=== PATIENT | male | born 2005 | race Caucasian/White ===

== ENCOUNTER 2025-01-06 09:37 | Observation (INO) | payer BC, MEDICAID, SELFPAY ==
[2025-01-06] VITALS (25 sets, daily range): BP systolic 99–161; BP diastolic 73–107; PULSE 81–114; RESP 12–27; TEMP 36.2–36.4; O2SAT 94–99; BMI 16.9
--- NOTE | ~2025-01-06 | XR_ITS ---
EXAMINATION: XR chest 2V Exam Date/Time: 01/07/2025 17:50 CDT HISTORY: Pneumomediastinum Comparison: 01/06/2025, x-ray chest and CT chest. RESULT: Lines, tubes, and devices: None. Lungs and pleura: Clear. Cardiomediastinal silhouette: Persistent small volume subcutaneous gas over the left lower neck and along the posterior mediastinum. Other: No acute osseous or upper abdominal finding. IMPRESSION: Stable pneumomediastinum. The pulmonary opacities in the prior CT are radiographically occult. Reviewed, dictated and finalized at location K. IMPRESSION: Stable pneumomediastinum. The pulmonary opacities in the prior CT are radiograp hically occult.
--- NOTE | ~2025-01-06 | CT_ITS ---
EXAMINATION:CT diagnostic chest wo con DATE: 01/06/2025 11:45 INDICATION: Abnormal chest radiograph. Pneumothorax. TECHNIQUE: Computed tomography (CT) of the chest was performed without intravenous contrast. Automate d exposure control and iterative reconstruction technique were employed. The dose-length product (DLP ) was 144.33 mGy-cm. COMPARISON: Chest 2 views 01/06/2025 FINDINGS: There is mucous plugging in right lower lobe. There are a few small airspace and groundglas s opacities involving the right lower lobe, right middle lobe, and left upper lobe. No pleural effusi on. No pneumothorax. The heart size is normal. No pericardial effusion. Pneumomediastinum is noted. G as extends into the left neck soft tissues. The bones are unremarkable. IMPRESSION: 1. Pneumomediastinum. 2. No pneumothorax. 3. Mild multifocal lung disease, consistent with atelectasis versus atypical pneumonia. Reviewed, dictated and finalized at location A. IMPRESSION: 1. Pneumomediastinum. 2. No pneumothorax. 3. Mild multifocal lung disease, consistent with atelectasis versus atypical pn eumonia.
--- NOTE | ~2025-01-06 | XR_ITS ---
XR chest 2V Ordering provider: Mary Beth Lawson III, DO History: 19 years Male with . SOB, cp . Comparison: None. FINDINGS: MEDIASTINUM: The cardiac silhouette is not enlarged. LUNGS: No infiltrates or effusions. Lucency seen in the left apical area medially with extension in t he soft tissues which may indicate focal pneumothorax. Follow-up advised. OTHER: No free air under the diaphragm. IMPRESSION: Possible focal pneumothorax in the left apical area. Follow-up x-ray in 2 to 3 hours advised. Otherwi se no acute cardiopulmonary pathology. Reviewed, dictated and finalized at location A. IMPRESSION: Possible focal pneumothorax in the left apical area. Follow-up x-ray in 2 to 3 hours advised. Otherwise no acute cardiopulmonary pathology.
--- NOTE | ~2025-01-06 | XR_ITS ---
XR chest 2V 01/08/2025 11:09 Indication: Pneumomediastinum Procedure: 2 view chest Comparison: 01/07/2025 Findings: Heart size normal. No focal air space disease, pulmonary edema, pleural effusion or suspect ed pneumothorax. The lungs are hyperinflated which is consistent with, but not diagnostic of chronic obstructive pulmonary disease. Impression: 1: No acute cardiopulmonary disease. Reviewed, dictated and finalized at location A. Impression: 1: No acute cardiopulmonary disease.
--- NOTE | 2025-01-06 09:49 | ECG_ITS ---
Test Date: 2025-01-06 10:00:09 Measurements Intervals [place] Rate: 69 P: 87 PA: 114 QRS: 106 QRSD: 86 T: 77 QT: 368 QTc: 397 Interpretive Statements SINUS RHYTHM WITH MARKED SINUS ARRHYTHMIA WITH SHORT PA INTERVAL RIGHT AXIS DEVIATION [QRS AXIS > 100] INCOMPLETE RIGHT BUNDLE BRANCH BLOCK No previous ECG available for comparison Electronically Signed On 01-07-2025 15:29:42 CDT by Boby Villalobos M.D.
[2025-01-06 10:19] LABS: Basophils Absolute Auto 0.1 K/mm3 (0.0-0.1); Basophils Percent Auto 0.8 % (0.2-1.2); Eosinophils Absolute Auto 1.2 K/mm3 (0-0.3); Eosinophils Percent Auto 8.2 % (0-4.4); Hematocrit 53.9 % (42.0-52.0); Hemoglobin 19.2 g/dL (14.0-18.0); Immature Granulocyte Absolute 0.04 K/mm3 (0.00-0.031); Immature Granulocyte Percent A 0.3 % (0-0.5); Mean Corpuscular HGB Conc 35.6 g/dl (32-36); Mean Corpuscular Hemoglobin 30.4 pg (26-34); Mean Corpuscular Volume 85.3 fl (80-100); Mean Platelet Volume 9.6 fl (7.4-10.4); Monocytes Absolute Auto 0.9 K/mm3 (0.1-0.6); Monocytes Percent Auto 6.1 % (2.6-8.5); Neutrophils Absolute Auto 10.3 K/mm3 (1.3-6.7); Neutrophils Percent Auto 72.6 % (45.5-73.1); Platelet Count Result 346 k/mm3 (150-375); Red Blood Count 6.32 M/mm3 (4.6-6.20); Red Cell Distribution Width 12.2 % (11.5-14.5); White Blood Count 14.2 K/mm3 (4.5-10.0)
[2025-01-06 10:30] LABS: Alanine Aminotransferase 21 U/L (6-50); Alkaline Phosphatase 82 U/L (58-237); Anion Gap 15 mmol/L (4-12); Aspartate Amino Transferase 25 U/L (17-59); Bilirubin,Total 1.3 mg/dL (0.2-1.3); Blood Urea Nitrogen 17 mg/dL (8-21); Calcium 9.6 mg/dL (8.9-10.7); Carbon Dioxide 24 mmol/L (22-30); Chloride 102 mmol/L (98-107); Estimated CRCL calculation 73 ml/min; Estimated Glomerular Filt Rate > 60; Glucose 99 mg/dL (65-110); Potassium 4.1 mmol/L (3.4-5.0); Sodium 141 mmol/L (134-143)
--- NOTE | 2025-01-06 11:30 | ED.SOB ---
HPI - SOB/Dyspnea General Chief Complaint: Shortness of Breath/Dyspnea Stated Complaint: trouble breathing 2 weeks Time Seen by Provider: 01/06/25 11:24 History of Present Illness HPI Narrative: Pt says he has felt SOB for two weeks especially when laying flat. Pt would cough up some mucous and it would improve. Pt says he started developing some sharp CP and a little worse SOB last couple of days so came to ER. Related Data Home Medications ?Medication ?Instructions ?Recorded ?Confirmed ?Last Taken ?Type No Home Medications 01/06/25 01/06/25 Unknown History Allergies Allergy/AdvReac Type Severity Reaction Status Date / Time No Known Allergies Allergy Verified 01/06/25 09:39 Review of Systems Review of Systems: All systems reviewed & are unremarkable except as noted in HPI and below PMFSH Social History Social History Smoking packs per day: 0.25 Smoking cigarettes per day: 5.0 Years smoked: 2 Smoking pack-years: 0.50 Smoking status: Current every day smoker Tobacco type: cigarettes Second hand tobacco smoke exposure: No Alcohol intake: never Substance use: former Substance use type: marijuana Do You Feel Safe in your Home?: Yes Lack of Transportation: No Lack of Food: Never True Current Housing: I Have Housing Concerned About Future Housing: No Difficulty Paying Gas/Electric Bills: No Difficulty Paying for Meds: No Currently Unemployed: No Education: High School Diploma/GED Difficulty w/ Childcare or Family Care: No Spiritual care concerns: No Exam Const: General: healthy appearing and no acute distress Nutritional Appearance: well nourished and thin Orientation/consciousness: patient oriented x3 Limitations: no limitations Chest: Chest palpation & inspection: normal inspection of the chest Resp: Effort & Inspection: normal respiratory effort Auscultation: clear to auscultation bilaterally Cardio: Rate: regular rate Rhythm: regular rhythm GI: GI Palp: Yes Soft to palpation Auscultation: normal bowel sounds Skin: General skin exam: normal color Rashes: no rashes Wounds: no wounds Neuro: General: patient oriented x3, moves all extremities, no focal motor deficits and CN's II-XI intact bilaterally Cranial nerves: Yes Nystagmus not present Speech: normal speech Extrem: General: normal to inspection and no clubbing, cyanosis or edema Psych: Mental Status: mental status grossly normal Affect: normal affect Attitude: cooperative Course Vital Signs Vital signs: Vital Signs Temperature 97.5 F L 03/24/25 09:40 Pulse Rate 114 H 01/06/25 09:40 Respiratory Rate 20 01/06/25 09:40 Blood Pressure 149/107 H 01/06/25 09:40 Pulse Oximetry 96 01/06/25 09:40 Oxygen Delivery Room Air 01/06/25 09:40 Temperature 97.5 F L 01/06/25 09:40 Pulse Rate 93 01/06/25 15:05 Respiratory Rate 21 H 01/06/25 15:05 Blood Pressure 128/84 01/06/25 15:05 Pulse Oximetry 95 01/06/25 15:05 Oxygen Delivery Room Air 01/06/25 09:40 MDM - SOB/Dyspnea MDM Narrative Medical decision making narrative: Pt presents with SOB and CP. EKG unremarkable will get labs and cxr. cxr show smal left apical pneumothorax. Will get CT chest. ct chest shows no pneumothorax but has pneumomediastinum. Discussed with Dr Velazquez said get d dimer and make sure not PE d dimer neg discussed with Dr Nielson, CT surgeon at [facility] aske if possibilty or Borhaev's suyndrome. Pt has not been vomiting and has no abdominal pain. pt has no PCP so cannot arrange outpatient follow up. discussed with Dimple Zhou and agrees to observe overnight. Lab Data 01/06/25 10:04 01/06/25 10:04 Labs: Lab Results 01/06/25 01/06/25 Range/Units 10:04 12:57 WBC 14.2 H (4.5-10.0) K/mm3 RBC 6.32 H (4.6-6.20) M/mm3 Hgb 19.2 H (14.0-18.0) g/dL Hct 53.9 H (42.0-52.0) % MCV 85.3 (80-100) fl MCH 30.4 (26-34) pg MCHC 35.6 (32-36) g/dl RDW 12.2 (11.5-14.5) % Plt Count 346 (150-375) k/mm3 MPV 9.6 (7.4-10.4) fl Immature Gran % (Auto) 0.3 (0-0.5) % Neut % (Auto) 72.6 (45.5-73.1) % Lymph % (Auto) 12.0 L (18.3-44.2) % [place] % (Auto) 6.1 (2.6-8.5) % Eos % (Auto) 8.2 H (0-4.4) % Baso % (Auto) 0.8 (0.2-1.2) % Lymph # (Auto) 1.70 (0.9-3.2) K/mm3 [place] # (Auto) 0.9 H (0.1-0.6) K/mm3 Eos # (Auto) 1.2 H (0-0.3) K/mm3 Baso # (Auto) 0.1 (0.0-0.1) K/mm3 Abs Immat Gran (auto) 0.04 H (0.00-0.031) K/mm3 Absolute Neuts (auto) 10.3 H (1.3-6.7) K/mm3 Absolute Nucleated RBC 0.000 (0.0-0.012) K/mm3 Nucleated RBC % 0.0 (0.0-0.2) % D-Dimer < 0.27 (<0.48) ug/mL Sodium 141 (134-143) mmol/L Potassium 4.1 (3.4-5.0) mmol/L Chloride 102 (98-107) mmol/L Carbon Dioxide 24 (22-30) mmol/L Anion Gap 15 H (4-12) mmol/L BUN 17 (8-21) mg/dL Creatinine 1.06 (0.7-1.3) mg/dL Estim Creat Clear Calc 73 ml/min Estimated GFR > 60 (59 - ) Glucose 99 (65-110) mg/dL Calcium 9.6 (8.9-10.7) mg/dL Total Bilirubin 1.3 (0.2-1.3) mg/dL AST 25 (17-59) U/L ALT 21 (6-50) U/L Alkaline Phosphatase 82 (58-237) U/L Total Protein 9.0 H (6.3-8.6) g/dL Albumin 5.0 (3.7-5.6) g/dL Discharge Plan Discharge Clinical Impression: Pneumomediastinum Patient Disposition: Still a Patient Condition: Stable
[2025-01-06 13:23] LABS: D Dimer < 0.27 ug/mL (<0.48)
--- NOTE | 2025-01-06 15:07 | P.HP_ITS ---
H&P: HPI History of Present Illness Date/Time: 01/06/25 15:07 Chief Complaint: Shortness of breath and chest pain Narrative: 19-year-old male presents to the emergency room with shortness of breath and chest pain. Patient states that he had shortness of breath starting a few days ago. He thought that he was getting cold or flu so he took some [id number] cough medicine. He states that he had difficulty sleeping at night he felt like he can not breathe. It was not improving so he came into the hospital. Denies heart coughing, fever chills nausea or vomiting. Does endorse vaping. In the ED is leukocytosis at 14.2 hemoglobin of 19.2, chest x-ray shows possible pneumothorax in the left apical area, chest CT shows pneumomediastinum, no pneumothorax, mild multifocal lung disease consistent with atelectasis versus atypical pneumonia. Chest EKG shows sinus rhythm with marked sinus arrhythmia with short [place] interval possible right ventricle conduction delay. Pulmonology consulted. Review of Systems Review of Systems: 12 systems were reviewed and are negativ e except for as per HPI. [facility] Social History Social History Smoking packs per day: 0.25 Smoking cigarettes per day: 5.0 Years smoked: 2 Smoking pack-years: 0.50 Smoking status: Current every day smoker Tobacco type: cigarettes Second hand tobacco smoke exposure: No Alcohol intake: never Substance use: former Substance use type: marijuana Do You Feel Safe in your Home?: Yes Lack of Transportation: No Lack of Food: Never True Current Housing: I Have Housing Concerned About Future Housing: No Difficulty Paying Gas/Electric Bills: No Difficulty Paying for Meds: No Currently Unemployed: No Education: High School Diploma/GED Difficulty w/ Childcare or Family Care: No Spiritual care concerns: No Meds Home Medications and Allergies Home Medications ?Medication ?Instructions ?Recorded ?Confirmed ?Type No Home Medications 01/06/25 01/06/25 History Allergies Allergy/AdvReac Type Severity Reaction Status Date / Time No Known Allergies Allergy Verified 01/06/25 09:39 Vital Signs Vital Signs - 24 hr 01/06/25 09:40 01/06/25 09:57 01/06/25 10:01 Temperature 97.5 F L Pulse Rate 114 H 110 H 104 H Respiratory Rate 20 27 H 14 Blood Pressure 149/107 H Pulse Oximetry 96 96 95 Oxygen Delivery Room Air 01/06/25 10:04 01/06/25 10:09 01/06/25 10:10 Temperature Pulse Rate 85 97 88 Respiratory Rate 18 20 Blood Pressure 136/99 H 132/99 H Pulse Oximetry 98 97 Oxygen Delivery 01/06/25 10:15 01/06/25 10:16 01/06/25 10:34 Temperature Pulse Rate 87 94 86 Respiratory Rate 18 23 H 22 H Blood Pressure 121/98 H Pulse Oximetry 97 97 96 Oxygen Delivery 01/06/25 10:35 01/06/25 10:45 01/06/25 10:47 Temperature Pulse Rate 91 89 94 Respiratory Rate 21 H 22 H 24 H Blood Pressure 99/73 L Pulse Oximetry 95 94 96 Oxygen Delivery 01/06/25 11:00 01/06/25 14:45 Temperature Pulse Rate 94 93 Respiratory Rate 21 H 22 H Blood Pressure 125/94 H Pulse Oximetry 96 96 Oxygen Delivery Exam Narrative: General: well appearing, appears stated age. HEENT: normocephalic, atraumatic. Mucous membranes moist. EOMI, PERRLA, bilateral sclera anicteric, no conjunctival injection. Neck supple without JVD, lymphadenopathy, or bruit. Respiratory: Wheezing to ascultation bilaterally. No rales/rhonic/wheezes. Cardiovascular: Regular rate and rhythm, normal S1-S2 upon ascultation. No murmurs, rubs, or clicks. PMI is nondisplaced, capillary refill less than 3 second. Abdomen: Soft, round, no pulsatile masses, nondistended and nontender. No rebound, no guarding. No CVA tenderness, no hepatosplenomegaly. Bowel sounds present to all four quadrants. No high pitch or tinkling sounds, resonant to percussion. Extremities: No cyanosis, clubbing, or edema present. Pulses are palpable 2/2. Active ROM to all four extremities. Neuro: Alert and orientated x 4. PERRLA. Cranial nerves 2-12 intact without focal deficit. Skin: Warm, dry, and intact, without rash, erythema, or lesion. Psych: pleasant, cooperative, normal speech, normal affect, no hallucinations, no dysarthia H&P: Results Labs Labs: Short CBC 01/06/25 Range/Units 10:04 WBC 14.2 H (4.5-10.0) K/mm3 Hgb 19.2 H (14.0-18.0) g/dL Hct 53.9 H (42.0-52.0) % Plt Count 346 (150-375) k/mm3 BMP 01/06/25 10:04 Sodium 141 Potassium 4.1 Chloride 102 Carbon Dioxide 24 BUN 17 Creatinine 1.06 Glucose 99 Calcium 9.6 Liver Function 01/06/25 Range/Units 10:04 Total Bilirubin 1.3 (0.2-1.3) mg/dL AST 25 (17-59) U/L ALT 21 (6-50) U/L Alkaline Phosphatase 82 (58-237) U/L Albumin 5.0 (3.7-5.6) g/dL Assessment and Plan Assessment and plan (1) Pneumomediastinum: Code(s): J98.2 - Interstitial emphysema Status: Acute Assessment and Plan: Pulmonology consult Plan for repeat CT in the a.m. Repeat EKG in the morning Patient counseled about not vaping Albuterol inhaler (2) Leukocytosis: Code(s): D72.829 - Elevated white blood cell count, unspecified Status: Acute Assessment and Plan: Repeat CBC the morning CT with pneumonia versus atelectasis, will hold off on antibiotics for now Repeat CT in the morning Quality VTE Prophylaxis VTE prophylaxis: mechanical ordered Hospitalist MIPS Advance Care Plan I have confirmed that the patient's Advanced Care Plan is present, code status is documented, or surrogate decision maker is listed in patient medical record.: Yes Medication Reconciliation I have utilized all available resources to obtain, update and review the patients current medications (includes all prescriptions, OTC, herbals, cannabis, and nutritional supplements).: Yes
--- NOTE | 2025-01-06 17:48 | ADMGEN ---
This patient, Apolinar Chan, was admitted to [facility] Surg Room 321-02. Patient/family oriented to hospital policies and general routines including ID bracelet, bed and alarms, visiting hours, pain management, procedures, bathroom and other care routines, personal items, smoking policy, room service/diet, and visiting hours. Information on how to activate the Rapid Response Team has been discussed. Patient/Family are encouraged to report perceived risks to care and to ask questions if they do not understand what they are told or what they should do.
[2025-01-07] VITALS: BP 134/97; PULSE 70; RESP 13; TEMP 36.1; O2SAT 94
[2025-01-07 04:00] VITALS: BP 145/85; PULSE 75; RESP 12; TEMP 36.6; O2SAT 95
[2025-01-07 06:00] VITALS: BP 145/85; PULSE 75; RESP 12; TEMP 36.6; O2SAT 95
[2025-01-07 06:17] LABS: Basophils Absolute Auto 0.1 K/mm3 (0.0-0.1); Eosinophils Absolute Auto 1.3 K/mm3 (0-0.3); Eosinophils Percent Auto 12.4 % (0-4.4); Hematocrit 53.5 % (42.0-52.0); Immature Granulocyte Absolute 0.02 K/mm3 (0.00-0.031); Immature Granulocyte Percent A 0.2 % (0-0.5); Lymphocytes Absolute Auto 2.81 K/mm3 (0.9-3.2); Mean Corpuscular HGB Conc 35.5 g/dl (32-36); Mean Corpuscular Hemoglobin 30.2 pg (26-34); Mean Corpuscular Volume 84.9 fl (80-100); Mean Platelet Volume 9.4 fl (7.4-10.4); Monocytes Absolute Auto 0.9 K/mm3 (0.1-0.6); Monocytes Percent Auto 8.3 % (2.6-8.5); Neutrophils Absolute Auto 5.3 K/mm3 (1.3-6.7); Neutrophils Percent Auto 51.1 % (45.5-73.1); Platelet Count Result 353 k/mm3 (150-375); White Blood Count 10.4 K/mm3 (4.5-10.0)
[2025-01-07 06:24] LABS: Anion Gap 14 mmol/L (4-12); Blood Urea Nitrogen 17 mg/dL (8-21); Calcium 9.6 mg/dL (8.9-10.7); Carbon Dioxide 23 mmol/L (22-30); Chloride 101 mmol/L (98-107); Estimated CRCL calculation 83 ml/min; Estimated Glomerular Filt Rate > 60; Glucose 85 mg/dL (65-110); Potassium 4.5 mmol/L (3.4-5.0); Sodium 138 mmol/L (134-143)
--- NOTE | 2025-01-07 07:00 | ECG_ITS ---
Test Date: 2025-01-07 09:30:18 Measurements Intervals [place] Rate: 80 P: 85 NV: 129 QRS: 107 QRSD: 89 T: 59 QT: 349 QTc: 404 Interpretive Statements SINUS RHYTHM WITH MARKED SINUS ARRHYTHMIA RIGHT AXIS DEVIATION [QRS AXIS > 100] INCOMPLETE RIGHT BUNDLE BRANCH BLOCK Compared to ECG 01/06/2025 10:00:09 NO SIGNIFICANT CHANGES Electronically Signed On 01-07-2025 16:42:07 CDT by Boby Villalobos M.D.
--- NOTE | 2025-01-07 10:21 | P.PNIM_ITS ---
Progress Note: A&P Assessment and Plan (1) Atypical pneumonia: Code(s): J18.9 - Pneumonia, unspecified organism Status: Acute (2) Pneumomediastinum: Code(s): J98.2 - Interstitial emphysema Status: Acute (3) Leukocytosis: Code(s): D72.829 - Elevated white blood cell count, unspecified Status: Acute Plan 19-year-old male presents to the emergency room with shortness of breath and chest pain. Patient states that he had shortness of breath starting a few days ago. He thought that he was getting cold or flu so he took some [id number] cough medicine. He states that he had difficulty sleeping at night he felt like he can not breathe. It was not improving so he came into the hospital. Denies heart coughing, fever chills nausea or vomiting. Does endorse vaping. Pneumomediastinum: Code(s): J98.2 - Interstitial emphysema Status: Acute Assessment and Plan: CT chest reported 1. Pneumomediastinum. 2. No pneumothorax. 3. Mild multifocal lung disease, consistent with atelectasis versus atypical pneumonia. Patient counseled about not vaping Continue Albuterol inhaler p.r.n. Pulmonology consult for evaluation treatment Leukocytosis: Code(s): D72.829 - Elevated white blood cell count, unspecified Status: Acute Assessment and Plan: Repeat CBC the morning, leukocytosis trending down CT showed Mild multifocal lung disease, consistent with atelectasis versus atypical pneumonia. Languages And Literature Instructor consulted, follow recommendations Subjective Date/time seen: 01/07/25 10:21 Interval history: I saw examined patient today, patient feels chest pain is improving, denies shortness breath, abdomen pain nausea vomiting diarrhea. Patient is afebrile, blood pressure stable no O2 desaturation room air, labs reviewed, leukocytosis improving, Exam Narrative: GENERAL: Pleasant, in no acute distress. Well-nourished. - EYES: EOMI. Anicteric. - HENT: Moist mucous membranes. - LUNGS: Clear to auscultation bilateral ly, no wheezing, rhonchi, or rales. - CARDIOVASCULAR: Regular rate and rhyth m. No murmur. No JVD. - ABDOMEN: Soft, non-tender and non-dist ended. No palpable masses. - EXTREMITIES: No edema. Peripheral puls es 2+. Non-tender. - NEUROLOGIC: No focal neurological defi cits. CN II-XII grossly intact. - PSYCHIATRIC: Awake, Alert and oriented x 3. Appropriate mood and affect. - SKIN: No rashes or lesions. Warm. - LYMPH: No cervical lymphadenopathy. Objective Data Vital Signs Vital Signs: Vital Signs - 24 hr 01/06/25 10:34 01/06/25 10:35 01/06/25 10:45 Temperature Pulse Rate 86 91 89 Respiratory Rate 22 H 21 H 22 H Blood Pressure Pulse Oximetry 96 95 94 Oxygen Delivery 01/06/25 10:47 01/06/25 11:00 01/06/25 12:31 Temperature Pulse Rate 94 94 93 Respiratory Rate 24 H 21 H 22 H Blood Pressure 99/73 L Pulse Oximetry 96 96 99 Oxygen Delivery 01/06/25 12:47 01/06/25 13:01 01/06/25 13:15 Temperature Pulse Rate 91 94 81 Respiratory Rate 23 H 24 H 22 H Blood Pressure Pulse Oximetry 98 99 98 Oxygen Delivery 01/06/25 13:30 01/06/25 13:45 01/06/25 14:00 Temperature Pulse Rate 87 95 92 Respiratory Rate 25 H 26 H 24 H Blood Pressure Pulse Oximetry 95 96 97 Oxygen Delivery 01/06/25 14:18 01/06/25 14:30 01/06/25 14:45 Temperature Pulse Rate 97 90 93 Respiratory Rate 25 H 20 22 H Blood Pressure 125/94 H Pulse Oximetry 95 97 96 Oxygen Delivery 01/06/25 15:05 01/06/25 20:00 01/06/25 20:00 Temperature 97.1 F L Pulse Rate 93 87 Respiratory Rate 21 H 12 Blood Pressure 128/84 161/85 H Pulse Oximetry 95 97 Oxygen Delivery Room Air 01/07/25 00:00 01/07/25 04:00 01/07/25 06:00 Temperature 96.9 F L 97.8 F 97.8 F Pulse Rate 70 75 75 Respiratory Rate 13 12 12 Blood Pressure 134/97 H 145/85 H 145/85 H Pulse Oximetry 94 95 95 Oxygen Delivery 01/07/25 08:00 Temperature Pulse Rate Respiratory Rate Blood Pressure Pulse Oximetry Oxygen Delivery Room Air Intake/Output Intake/Output: Intake & Output 01/04/25 01/05/25 01/06/25 01/07/25 23:59 23:59 23:59 23:59 Intake Total 740 940 Balance 740 940 Meds/Results Medications: Active Medications Generic Name Dose Route Start Last Admin Trade Name Arturo PRN Reason Stop Dose Admin Acetaminophen 650 mg 01/06/25 15:16 Acetaminophen 325 Mg Tablet PO Q4H PRN Mild Pain (1-3) or Fever Albuterol 2 puff 01/06/25 22:39 Albuterol Sulfate (*Sp) Aerosol 1 Puff INHALATION Q6HRT PRN Shortness Of Breath Radiology Results: ITS Impressions Chest X-Ray 01/06/25 10:42 IMPRESSION: Possible focal pneumothorax in the left apical area. Follow-up x-ray in 2 to 3 hours advised. Otherwise no acute cardiopulmonary pathology. Chest CT 01/06/25 11:52 IMPRESSION: 1. Pneumomediastinum. 2. No pneumothorax. 3. Mild multifocal lung disease, consistent with atelectasis versus atypical pneumonia. Labs Labs: Laboratory Results - last 24 hr 01/06/25 01/06/25 01/07/25 10:04 12:57 05:56 WBC 14.2 H 10.4 H RBC 6.32 H 6.30 H Hgb 19.2 H 19.0 H Hct 53.9 H 53.5 H MCV 85.3 84.9 MCH 30.4 30.2 MCHC 35.6 35.5 RDW 12.2 12.0 Plt Count 346 353 MPV 9.6 9.4 Immature Gran % (Auto) 0.3 0.2 Neut % (Auto) 72.6 51.1 Lymph % (Auto) 12.0 L 27.0 [place] % (Auto) 6.1 8.3 Eos % (Auto) 8.2 H 12.4 H Baso % (Auto) 0.8 1.0 Lymph # (Auto) 1.70 2.81 [place] # (Auto) 0.9 H 0.9 H Eos # (Auto) 1.2 H 1.3 H Baso # (Auto) 0.1 0.1 Abs Immat Gran (auto) 0.04 H 0.02 Absolute Neuts (auto) 10.3 H 5.3 Absolute Nucleated RBC 0.000 0.000 Nucleated RBC % 0.0 0.0 D-Dimer < 0.27 Sodium 141 138 Potassium 4.1 4.5 Chloride 102 101 Carbon Dioxide 24 23 Anion Gap 15 H 14 H BUN 17 17 Creatinine 1.06 0.93 Estim Creat Clear Calc 73 83 Estimated GFR > 60 > 60 Glucose 99 85 Calcium 9.6 9.6 Total Bilirubin 1.3 AST 25 ALT 21 Alkaline Phosphatase 82 Total Protein 9.0 H Albumin 5.0
[2025-01-07 14:00] VITALS: BP 164/96; PULSE 68; RESP 20; TEMP 36.9; O2SAT 96
[2025-01-07] MEDS: ALBUTEROL SULFATE (*SP) AEROSOL 1 PUFF 2 PUFF INHALATION (21:11)
[2025-01-07] MEDS: guaiFENesin 12 HR 600 MG TABCR PO (21:19)
[2025-01-07 21:22] VITALS: PULSE 80; RESP 18; O2SAT 97
[2025-01-07 22:00] VITALS: BP 151/98; PULSE 62; RESP 16; TEMP 36.8; O2SAT 96
[2025-01-08 05:52] VITALS: BP 131/94; PULSE 90; RESP 16; TEMP 36.4; O2SAT 94
--- NOTE | 2025-01-08 07:28 | PM.IMPN ---
Progress Note: A&P Assessment and Plan (1) Atypical pneumonia: Code(s): J18.9 - Pneumonia, unspecified organism Status: Acute (2) Pneumomediastinum: Code(s): J98.2 - Interstitial emphysema Status: Acute (3) Leukocytosis: Code(s): D72.829 - Elevated white blood cell count, unspecified Status: Acute Plan 19-year-old male presents to the emergency room with shortness of breath and chest pain. Patient states that he had shortness of breath starting a few days ago. He thought that he was getting cold or flu so he took some yrcr-hug-fgelelk cough medicine. He states that he had difficulty sleeping at night he felt like he can not breathe. It was not improving so he came into the hospital. Denies heart coughing, fever chills nausea or vomiting. Does endorse vaping. Pneumomediastinum: Code(s): J98.2 - Interstitial emphysema Status: Acute Assessment and Plan: CT chest reported 1. Pneumomediastinum. 2. No pneumothorax. 3. Mild multifocal lung disease, consistent with atelectasis versus atypical pneumonia. Patient counseled about not vaping Continue Albuterol inhaler p.r.n. Pulmonology consult for evaluation treatment Leukocytosis: Code(s): D72.829 - Elevated white blood cell count, unspecified Status: Acute Assessment and Plan: Repeat CBC the morning, leukocytosis trending down CT showed Mild multifocal lung disease, consistent with atelectasis versus atypical pneumonia. Assistant [employer] consulted, follow recommendations Time Spent With Patient Time: Subjective Date/time seen: 01/08/25 07:28 Interval history: 19-year-old male presents to the emergency room with shortness of breath and chest pain. Patient states that he had shortness of breath starting a few days ago. 01/08/25 Review of Systems Review of Systems: 12 systems were reviewed and are negative except for as per HPI. Exam Narrative: GENERAL: Pleasant, in no acute distress. Well-nourished. - EYES: EOMI. Anicteric. - HENT: Moist mucous membranes. - LUNGS: Clear to auscultation bilaterally, no wheezing, rhonchi, or rales. - CARDIOVASCULAR: Regular rate and rhythm. No murmur. No JVD. - ABDOMEN: Soft, non-tender and non-distended. No palpable masses. - EXTREMITIES: No edema. Peripheral pulses 2+. Non-tender. - NEUROLOGIC: No focal neurological deficits. CN II-XII grossly intact. - PSYCHIATRIC: Awake, Alert and oriented x 3. Appropriate mood and affect. - SKIN: No rashes or lesions. Warm. - LYMPH: No cervical lymphadenopathy. Objective Data Vital Signs Vital Signs: Vital Signs - 24 hr 01/07/25 08:00 01/07/25 14:00 01/07/25 20:00 Temperature 98.4 F Pulse Rate 68 Respiratory Rate 20 Blood Pressure 164/96 H Pulse Oximetry 96 Oxygen Delivery Room Air Room Air 01/07/25 21:22 01/07/25 22:00 01/08/25 05:52 Temperature 98.2 F 97.5 F L Pulse Rate 80 62 90 Respiratory Rate 18 16 16 Blood Pressure 151/98 H 131/94 H Pulse Oximetry 97 96 94 Oxygen Delivery Room Air Intake/Output Intake/Output: Intake & Output 01/05/25 01/06/25 01/07/25 01/08/25 23:59 23:59 23:59 23:59 Intake Total 740 2420 200 Balance 740 2420 200 Meds/Results Medications: Active Medications Generic Name Dose Route Start Last Admin Trade Name Freq PRN Reason Stop Dose Admin Acetaminophen 650 mg 01/06/25 15:16 Acetaminophen 325 Mg Tablet PO Q4H PRN Mild Pain (1-3) or Fever Albuterol 2 puff 01/06/25 22:39 01/07/25 21:11 Albuterol Sulfate (*Sp) Aerosol 1 Puff INHALATION 2 puff Q6HRT PRN Administration Shortness Of Breath Guaifenesin 600 mg 01/07/25 21:05 01/07/25 21:19 Guaifenesin 12 Hr 600 Mg Tabcr PO 600 mg Q12HR ANJU Administration Radiology Results: ITS Impressions Chest CT 01/06/25 11:52 IMPRESSION: 1. Pneumomediastinum. 2. No pneumothorax. 3. Mild multifocal lung disease, consistent with atelectasis versus atypical pneumonia. Chest X-Ray 01/07/25 17:59 IMPRESSION: Stable pneumomediastinum. The pulmonary opacities in the prior CT are radiographically occult. Quality VTE Prophylaxis VTE prophylaxis: mechanical ordered
[2025-01-08 08:00] VITALS: O2SAT 93
[2025-01-08 08:23] LABS: Basophils Absolute Auto 0.1 K/mm3 (0.0-0.1); Basophils Percent Auto 1.2 % (0.2-1.2); Hematocrit 53.6 % (42.0-52.0); Hemoglobin 19.4 g/dL (14.0-18.0); Immature Granulocyte Absolute 0.02 K/mm3 (0.00-0.031); Immature Granulocyte Percent A 0.3 % (0-0.5); Lymphocytes Absolute Auto 1.95 K/mm3 (0.9-3.2); Lymphocytes Percent Auto 25.6 % (18.3-44.2); Mean Corpuscular HGB Conc 36.2 g/dl (32-36); Mean Corpuscular Hemoglobin 31.1 pg (26-34); Mean Corpuscular Volume 85.9 fl (80-100); Mean Platelet Volume 9.5 fl (7.4-10.4); Monocytes Absolute Auto 0.7 K/mm3 (0.1-0.6); Monocytes Percent Auto 9.7 % (2.6-8.5); Neutrophils Absolute Auto 3.8 K/mm3 (1.3-6.7); Neutrophils Percent Auto 50.2 % (45.5-73.1); Platelet Count Result 328 k/mm3 (150-375); Red Blood Count 6.24 M/mm3 (4.6-6.20); Red Cell Distribution Width 12.2 % (11.5-14.5); White Blood Count 7.6 K/mm3 (4.5-10.0)
[2025-01-08 08:33] LABS: Alanine Aminotransferase 20 U/L (6-50); Albumin Level 4.8 g/dL (3.7-5.6); Alkaline Phosphatase 72 U/L (58-237); Anion Gap 13 mmol/L (4-12); Aspartate Amino Transferase 25 U/L (17-59); Bilirubin,Total 1.2 mg/dL (0.2-1.3); Blood Urea Nitrogen 16 mg/dL (8-21); Calcium 9.6 mg/dL (8.9-10.7); Carbon Dioxide 25 mmol/L (22-30); Chloride 100 mmol/L (98-107); Estimated CRCL calculation 79 ml/min; Estimated Glomerular Filt Rate > 60; Glucose 92 mg/dL (65-110); Potassium 4.1 mmol/L (3.4-5.0); Sodium 138 mmol/L (134-143)
--- NOTE | 2025-01-08 08:46 | P.CONPL_ITS ---
Assessment and Plan Assessment and plan (1) Pneumomediastinum: Code(s): J98.2 - Interstitial emphysema Status: Acute Assessment and Plan: This 19-year-old man developed symptoms consistent with an upper respiratory infection and subsequently experienced shortness of breath and wheezing. He was diagnosed with a pneumomediastinum and a few rare ground-glass opacities on chest CT. There is no pneumothorax, and on physical examination today, he continues to have wheezing. His clinical condition has improved over the last 24 hours. It is likely that this young man developed an upper respiratory infection with wheezing and coughing, which increased intrathoracic pressure, leading to air leakage. The pneumomediastinum is mild, and on physical examination, there is no evidence of crepitus in the upper chest or neck area. The elevated eosinophil count and wheezing raise concerns for possible obstructive airway disease, such as asthma. Other findings on physical examination include long, slender fingers and possibly a high-arched palate, but the patient does not exhibit the characteristic features of typical marfanoid syndrome, which can be associated with spontaneous pneumothorax. Plan: We will initiate treatment with a nebulized short-acting bronchodilator and administer Solu-Medrol 60 mg today for the wheezing. A repeat chest X-ray will be conducted in the morning, and the patient will most likely be discharged home following this repeat X-ray. I will continue to monitor the patient along with you. In cases of mild pneumomediastinum without pneumothorax, especially in a young patient following an upper respiratory infection, the treatment is typically conservative. Most mild cases resolve on their own without the need for invasive intervention. The patient should be closely monitored for any signs of complications or worsening symptoms. (2) Atypical pneumonia: Code(s): J18.9 - Pneumonia, unspecified organism Status: Acute (3) Leukocytosis: Code(s): D72.829 - Elevated white blood cell count, unspecified Status: Acute (4) Wheezing: Code(s): R06.2 - Wheezing Status: Acute (5) Eosinophilia: Code(s): D72.10 - Eosinophilia, unspecified Status: Acute History of Present Illness History of Present Illness Consult date: 01/08/25 Chief complaint: pneumomediastinum Narrative: This is a consultation for pneumomediastinum. This 19-year-old man was in his usual state of health until approximately three days prior to his presentation to the emergency room with shortness of breath. He reported that he began experiencing chest congestion and producing yellow-greenish sputum, for which he started taking [id number] medications, suspecting a flu-like illness. On the day of presentation, he experienced some shortness of breath and a pressure- like feeling in his upper chest. He also noted waking up at night with shortness of breath and reported wheezing. In the emergency room, he underwent a chest CT that showed mild pneumomediastinum and a few ground-glass opacities, but no pneumothorax or pleural effusions. His D-dimer levels were not elevated; however, his eosinophil count was elevated to approximately 900 and remained elevated on two subsequent CBC tests. The patient has been on Mucinex and uses albuterol as needed. Currently, he is doing better and reports no shortness of breath, fever, chills, hemoptysis, or wheezing. He denies having chest pain or palpitations. His past medical history is essentially unremarkable for underlying lung disease. He used to smoke approximately 4-5 cigarettes a day but quit three months ago. He also smoked marijuana and vaped in high school, but currently, he is not using any marijuana nor does he vape. He has no history of asthma, and there is no family history of asthma. He has no history of exposure to inhalants at home or in the workplace. Review of Systems 2 Review of Systems: Patient reports no significant weight changes. He has no history of nasal allergies. He has no history of chest pain. He has no history of nausea vomiting diarrhea constipation abdominal pain. He has no urinary complaints. He has no history of skin rashes. [facility] Social History Social History Smoking packs per day: 0.25 Smoking cigarettes per day: 5.0 Years smoked: 2 Smoking pack-years: 0.50 Smoking status: Current every day smoker Tobacco type: cigarettes Second hand tobacco smoke exposure: No Alcohol intake: never Substance use: former Substance use type: marijuana Do You Feel Safe in your Home?: Yes Lack of Transportation: No Lack of Food: Never True Current Housing: I Have Housing Concerned About Future Housing: No Difficulty Paying Gas/Electric Bills: No Difficulty Paying for Meds: No Currently Unemployed: No Education: High School Diploma/GED Difficulty w/ Childcare or Family Care: No Spiritual care concerns: No Meds Home Medications and Allergies Home Medications ?Medication ?Instructions ?Recorded ?Confirmed ?Type No Home Medications 01/06/25 01/06/25 History Allergies Allergy/AdvReac Type Severity Reaction Status Date / Time No Known Allergies Allergy Verified 01/06/25 09:39 Vital Signs Vital Signs - 24 hr 01/07/25 14:00 01/07/25 20:00 01/07/25 21:22 Temperature 36.9 C Pulse Rate 68 80 Respiratory Rate 20 18 Blood Pressure 164/96 H Pulse Oximetry 96 97 Oxygen Delivery Room Air Room Air 01/07/25 22:00 01/08/25 05:52 Temperature 36.8 C 36.4 C L Pulse Rate 62 90 Respiratory Rate 16 16 Blood Pressure 151/98 H 131/94 H Pulse Oximetry 96 94 Oxygen Delivery Exam 2 Narrative: GENERAL APPEARANCE: Well developed, well nourished, alert and cooperative, appears to be in no respiratory distress while sitting up in bed SKIN: Inspection of the skin reveals no rashes, ulcerations or petechiae. HEENT: Sclerae anicteric and conjunctivae pink and moist. Extraocular movements were intact and pupils were equal, round. High arched palate NECK: Supple. There was no thyroid enlargement, and no tenderness, or masses were felt. No crepitus neck CHEST: Normal AP diameter and normal contour without any kyphoscoliosis. LUNGS: Mild diffuse wheezing bilaterally CARDIAC: There was a regular rate and rhythm without any murmurs, gallops, rubs. ABDOMEN: Soft and nontender with normal bowel sounds. There was no organomegaly. LYMPH NODES: No lymphadenopathy was appreciated in the neck EXTREMITIES: No cyanosis, clubbing or edema. Long slender fingers NEUROLOGIC: Alert and oriented x 3. Normal affect. Results Laboratory Findings 01/08/25 08:10 01/08/25 08:10 ABG, PT/INR, D-dimer: PT/INR, D-dimer D-Dimer < 0.27 ug/mL (<0.48) 01/06/25 12:57 Abnormal lab findings: Abnormal Labs 01/06/25 01/07/25 01/08/25 10:04 05:56 08:10 WBC 14.2 H 10.4 H RBC 6.32 H 6.30 H 6.24 H Hgb 19.2 H 19.0 H 19.4 H Hct 53.9 H 53.5 H 53.6 H MCHC 36.2 H Lymph % (Auto) 12.0 L Callahan % (Auto) 9.7 H Eos % (Auto) 8.2 H 12.4 H 13.0 H Callahan # (Auto) 0.9 H 0.9 H 0.7 H Eos # (Auto) 1.2 H 1.3 H 1.0 H Abs Immat Gran (auto) 0.04 H Absolute Neuts (auto) 10.3 H Anion Gap 15 H 14 H 13 H Total Protein 9.0 H
[2025-01-08] MEDS: methylPREDNISolone SOD SUCC 125 MG VIAL 60 MG IV PUSH (09:02)
[2025-01-08] MEDS: guaiFENesin 12 HR 600 MG TABCR PO (09:02)
[2025-01-08 09:09] VITALS: PULSE 93; RESP 20
[2025-01-08] MEDS: ALBUTEROL SULFATE NEB 2.5 MG/3 ML INH INHALATION (09:09)
[2025-01-08 09:24] VITALS: PULSE 114; RESP 20
[2025-01-08 10:40] LABS: Influenza A QL RT-PCR Negative (Negative); Influenza B QL RT-PCR Negative (Negative); RSV RNA, RT-PCR Negative (Negative); SARS-CoV-2 RNA PCR Negative (Negative)
--- NOTE | 2025-01-08 12:00 | P.DS_ITS ---
DS: Admitting Diagnosis Discharge Date 01/08/2025 Admitting Diagnosis Pneumomediastinum DS: Discharge Diagnosis Discharge Diagnosis (1) Atypical pneumonia: Code(s): J18.9 - Pneumonia, unspecified organism Status: Acute (2) Pneumomediastinum: Code(s): J98.2 - Interstitial emphysema Status: Acute (3) Leukocytosis: Code(s): D72.829 - Elevated white blood cell count, unspecified Status: Acute DS: Summary Hospital Course Reason for hospitalization: Shortness of breath Chest Pain Hospital Course: 19-year-old male presents to the emergency room with shortness of breath and chest pain. Patient states that he had shortness of breath starting a few days ago. He thought that he was getting cold or flu so he took some fsqk-dyk-ldtmmyn cough medicine. He states that he had difficulty sleeping at night he felt like he can not breathe. It was not improving so he came into the hospital. Denies heart coughing, fever chills nausea or vomiting. Does endorse vaping. In the ED is leukocytosis at 14.2 hemoglobin of 19.2, chest x-ray shows possible pneumothorax in the left apical area, chest CT shows pneumomediastinum, no pneumothorax, mild multifocal lung disease consistent with atelectasis versus atypical pneumonia. Chest EKG shows sinus rhythm with marked sinus arrhythmia with short PA interval possible right ventricle conduction delay. Pulmonology consulted. Patient remained afebrile with stable BPs, stable O2s, improving Leukocytosis. On 01/08 am, patient denies any shortness of breath, chest pain, nausea/vomiting, or abdominal pain. He was also seen by Pulmonology, per note: likely that this young man developed an upper respiratory infection with wheezing and coughing, which increased intrathoracic pressure, leading to air leakage. The pneumomediastinum is mild, and on physical examination, there is no evidence of crepitus in the upper chest or neck area. The elevated eosinophil count and wheezing raise concerns for possible obstructive airway disease, such as asthma. Other findings on physical examination include long, slender fingers and possibly a high-arched palate, but the patient does not exhibit the characteristic features of typical marfanoid syndrome, which can be associated with spontaneous pneumothorax. Patient initiated on nebulized ELIZABETH and Solu-medrol for wheezing. Repeat Chest XR showed no acute findings. Plan to discharge, care coordination to set up PT with list of care providers to followup with outpatient. Encouraged to call and schedule an appointment as soon as possible. Time Spent with Patient Time attestation: Total time spent providing and/or coordinating discharge services: Exam Narrative: GENERAL: Pleasant, in no acute distress. Well-nourished. - EYES: EOMI. Anicteric. - HENT: Moist mucous membranes. - LUNGS: Mild diffuse wheezing bilateral ly - CARDIOVASCULAR: Regular rate and rhyth m. No murmur. No JVD. - ABDOMEN: Soft, non-tender and non-dist ended. No palpable masses. - EXTREMITIES: No edema. Peripheral puls es 2+. Non-tender. - NEUROLOGIC: No focal neurological defi cits. CN II-XII grossly intact. - PSYCHIATRIC: Awake, Alert and oriented x 3. Appropriate mood and affect. - SKIN: No rashes or lesions. Warm. - LYMPH: No cervical lymphadenopathy. DS: Data Data Completed and Pending Labs on day of discharge: Labs from last 24 hours 01/08/25 01/08/25 09:51 08:10 WBC 7.6 RBC 6.24 H Hgb 19.4 H Hct 53.6 H MCV 85.9 MCH 31.1 MCHC 36.2 H RDW 12.2 Plt Count 328 MPV 9.5 Immature Gran % (Auto) 0.3 Neut % (Auto) 50.2 Lymph % (Auto) 25.6 Gaines % (Auto) 9.7 H Eos % (Auto) 13.0 H Baso % (Auto) 1.2 Lymph # (Auto) 1.95 Gaines # (Auto) 0.7 H Eos # (Auto) 1.0 H Baso # (Auto) 0.1 Abs Immat Gran (auto) 0.02 Absolute Neuts (auto) 3.8 Absolute Nucleated RBC 0.000 Nucleated RBC % 0.0 Sodium 138 Potassium 4.1 Chloride 100 Carbon Dioxide 25 Anion Gap 13 H BUN 16 Creatinine 0.98 Estim Creat Clear Calc 79 Estimated GFR > 60 Glucose 92 Calcium 9.6 Total Bilirubin 1.2 AST 25 ALT 20 Alkaline Phosphatase 72 Total Protein 8.0 Albumin 4.8 Influenza A (RT-PCR) Negative Influenza B (RT-PCR) Negative RSV (RT-PCR) Negative SARS-CoV-2 RNA (RT-PCR) Negative Imaging Radiologist's impression: 01/07: Chest XR: Stable pneumomediastinum. The pulmonary opacities in the prior CT are radiographically occult. 01/08: Chest XR: No acute cardiopulmonary disease. Discharge Plan Discharge Attending physician on discharge: Alexis Malhotra Consulting providers: Ja Velazquez Discharging Clinician: Alexis Malhotra Anticipated Discharge Date/Time: 01/08/25 11:32 Patient Disposition: Home, Self-Care Activity: as tolerated Diet: as tolerated Discharge Instructions: Take all medications as prescribed even if feeling better Eat well balanced meals and stay hydrated Keep active, but do not over do it No running marathons, riding your bike, or any other activity that is not mild If you notice that you are short of breath sit down and take a break Check your SPO2 periodically, if it is low cough and rest, check again in about 15 minutes, if you remain low, you should come back to the hospital If you should experience any chest pain, shortness of breath, temps >100.4 or any other worrisome symptoms please follow up with your PCP come back to the hospital Follow up with your primary in 1 weeks. Care coordination will give you a list of care providers you may call to schedule an appointment. It has been a pleasure taking care of you thank you for using our services Patient Instructions: Antibiotic Form Patient Language: Croatian Stand Alone Forms: General Discharge Information Follow-up/Referrals: UNKNOWN,DOCTOR [Primary Care Provider] - Discharge Medications: No Action No Home Medications Date of admission: 01/06/25 15:40 Primary Care Provider: UNKNOWN,DOCTOR Admitting Provider: Adrián Mcelroy Attending physician on admission: Alexis Malhotra Condition: Stable Quality VTE Prophylaxis VTE prophylaxis: mechanical ordered Hospitalist MIPS Heart Failure (Exclusion) Patient has history of Heart Transplant or Left Ventricular Assistive Device?: No IF YES, STOP HERE Heart Failure (Qualifier) Patient has current or prior documentation of LVEF less than or equal to 40%, or mod/servere depressed LVSF?: No IF NO, STOP HERE
== END 2025-01-08 13:37 | disposition home or self-care (01) ==
LOC: ANHED 15:06 → ANH3MEDSUR 01-07 10:39
PROVIDERS: Internal Medicine Pulmonary Disease; Nurse Practitioner Gerontology; Admitting Provider General Practice; Emergency Provider Emergency Medicine; Visit Provider Physician Assistant
DX: J18.9 Pneumonia, unspecified organism (principal); J98.2 Interstitial emphysema; R06.2 Wheezing; D72.10 Eosinophilia, unspecified; Z20.822 Contact with and (suspected) exposure to COVID-19; Z87.891 Personal history of nicotine dependence
CPT/HCPCS: 36415; 71046; 71250; 80048; 80053; 85025; 85380; 87637; 93005; 94640; 94667; 96374; 99285; A9270; G0378; J2919

== ENCOUNTER 2025-02-20 13:56 | Observation (INO) | payer BC, MEDICAID, SELFPAY ==
[2025-02-20] VITALS (17 sets, daily range): BP systolic 110–136; BP diastolic 65–108; PULSE 85–128; RESP 18–25; TEMP 36.2–36.6; O2SAT 93–100; BMI 17.1
--- NOTE | ~2025-02-20 | XR_ITS ---
Portable chest x-ray Comparison: 01/08/2025 Clinical History: Shortness of breath Findings: Lungs are clear, without focal consolidation or pleural effusion. Suggestion of COPD. Car diomediastinal silhouette is stable. Bones and soft tissues are unremarkable. Impression: Clear lungs. Possible COPD. Reviewed, dictated and finalized at location . Impression: Clear lungs. Possible COPD.
--- NOTE | 2025-02-20 14:06 | ECG_ITS ---
Test Date: 2025-02-20 14:11:38 Measurements Intervals [place] Rate: 106 P: 87 RI: 104 QRS: 101 QRSD: 89 T: 66 QT: 318 QTc: 423 Interpretive Statements SINUS TACHYCARDIA WITH SHORT RI INTERVAL INDETERMINATE AXIS PATTERN CONSISTENT WITH PULMONARY DISEASE Compared to ECG 01/07/2025 09:30:18 Short RI interval now present Indeterminate axis now present Sinus rhythm no longer present Sinus arrhythmia no longer present Right-axis deviation no longer present Incomplete right bundle-branch block no longer present Electronically Signed On 02-20-2025 14:18:23 CDT by Kaitlin Swan
[2025-02-20] MEDS: methylPREDNISolone SOD SUCC 125 MG VIAL IV PUSH (14:27)
[2025-02-20] MEDS: MAGNESIUM SULF 2 GM/WATER 50ML 2 GM/50 ML BAG IVPB (14:29)
[2025-02-20] MEDS: IPRATROPIUM BR 0.02% INH SOLN 0.5 MG/2.5 ML VIAL 1 MG INHALATION (14:32)
[2025-02-20] MEDS: ALBUTEROL SULFATE NEB 2.5 MG/3 ML INH 10 MG INHALATION (14:32)
[2025-02-20 14:39] LABS: Basophils Absolute Auto 0.1 K/mm3 (0.0-0.1); Basophils Percent Auto 0.8 % (0.2-1.2); Eosinophils Percent Auto 8.7 % (0-4.4); Hematocrit 52.5 % (42.0-52.0); Hemoglobin 18.2 g/dL (14.0-18.0); Immature Granulocyte Absolute 0.02 K/mm3 (0.00-0.031); Immature Granulocyte Percent A 0.2 % (0-0.5); Lymphocytes Absolute Auto 2.67 K/mm3 (0.9-3.2); Lymphocytes Percent Auto 22.3 % (18.3-44.2); Mean Corpuscular HGB Conc 34.7 g/dl (32-36); Mean Corpuscular Hemoglobin 29.8 pg (26-34); Mean Corpuscular Volume 86.1 fl (80-100); Mean Platelet Volume 9.7 fl (7.4-10.4); Monocytes Absolute Auto 1.2 K/mm3 (0.1-0.6); Monocytes Percent Auto 10.3 % (2.6-8.5); Neutrophils Absolute Auto 6.9 K/mm3 (1.3-6.7); Neutrophils Percent Auto 57.7 % (45.5-73.1); Platelet Count Result 362 k/mm3 (150-375); Red Cell Distribution Width 12.9 % (11.5-14.5)
--- NOTE | 2025-02-20 14:39 | ED_ITS ---
HPI - SOB/Dyspnea General Chief Complaint: Shortness of Breath/Dyspnea Stated Complaint: dyspnea Time Seen by Provider: 02/20/25 14:13 History of Present Illness HPI Narrative: 20-year-old male with a past medical history including episodes of reactive airway disease with possibility of interstitial emphysema and he was recently seen here just over 1 month prior and admitted for a significant episode of difficulty in breathing requiring nebulization treatments and steroids. He was discharged home and has not followed up with any providers. Today presents with respiratory complaints and significant difficulty in breathing. Patient presents with labored respiratory effort with retractions and diffuse wheezing. He was brought back to room 19 for immediate interventions and evaluations in respiratory distress. Patient endorses chest tightness but no nausea, chest pain, back pain, abdominal pain. No trauma or injury. Related Data Home Medications ?Medication ?Instructions ?Recorded ?Confirmed ?Last Taken ?Type No Home Medications 01/06/25 02/20/25 Unknown History Allergies Allergy/AdvReac Type Severity Reaction Status Date / Time No Known Allergies Allergy Verified 01/06/25 09:39 Review of Systems 2 Review of Systems: As reviewed above in HPI [facility] Family History Family History (Updated 02/20/25 @ 21:00 by Jessy Cruz RN) Other Unknown family medical history Social History Social History Smoking packs per day: 0.25 Smoking cigarettes per day: 5.0 Years smoked: 2 Smoking pack-years: 0.50 Smoking status: Former smoker Tobacco type: cigars and e-cigarettes/vaping Second hand tobacco smoke exposure: No Additional smoking assessment comments: every other day Alcohol intake: never Substance use: current Substance use type: marijuana Other substance usage details: 1-3x per week Last use: 01/2025 Do You Feel Safe in your Home?: Yes Lack of Transportation: No Lack of Food: Never True Current Housing: I Have Housing Concerned About Future Housing: No Difficulty Paying Gas/Electric Bills: No Difficulty Paying for Meds: No Currently Unemployed: No Education: Grade School Difficulty w/ Childcare or Family Care: No Spiritual care concerns: No Exam 2 Narrative: GENERAL: Severe respiratory distress, retractions, labored breathing, awake and answering questions with conversational dyspnea HEAD: [Normocephalic, atraumatic.] EYES: [PERRLA and EOMI.] ENT: Nares clear, no rhinorrhea or epistaxis. Mucous membranes moist. NECK: Supple. CHEST: Diffuse scattered wheezing, good aeration, retractions and accessory muscle use, prolonged expiratory phase HEART: [Regular rate and rhythm]. No murmur heard. [Normal peripheral pulses.] ABDOMEN: [Soft, nondistended], [nontender], [No rigidity or guarding] EXTREMITIES: Normal range of motion. [No edema.] SKIN: Warm, dry, no rash. NEURO: [No focal deficits]. Alert and oriented [x3.] PSYCH: [Normal mood and affect.] Course Vital Signs Vital signs: Vital Signs Temperature 36.6 C 02/20/25 14:01 Pulse Rate 127 H 02/20/25 14:01 Respiratory Rate 25 H 02/20/25 14:01 Blood Pressure 136/108 H 02/20/25 14:01 Pulse Oximetry 95 02/20/25 14:01 Oxygen Delivery Room Air 02/20/25 14:01 Temperature 36.2 C L 02/20/25 19:48 Pulse Rate 107 H 02/20/25 20:10 Respiratory Rate 20 02/20/25 20:10 Blood Pressure 123/71 02/20/25 19:48 Pulse Oximetry 95 02/20/25 19:48 Oxygen Delivery Room Air 02/20/25 17:57 Oxygen Flow Rate 2 02/20/25 14:11 MDM - SOB/Dyspnea MDM Narrative Medical decision making narrative: 20-year-old male presenting in respiratory distress. He has a history of some potential reactive airway disease and was treated and admitted to this hospital in December for similar presentation. Today he presents in respiratory distress with retractions, labored breathing, conversational dyspnea and profound end- expiratory wheezing in all lung [place]. He is tachypneic in the mid 20s, tachycardic in the 120s, normal blood pressure, afebrile, saturating 95 on room air and placed on nasal cannula for comfort. Considerations presently are for reactive airway exacerbation such as undiagnosed asthma or COPD, pneumonia, pneumothorax also considered. Patient placed on breathing treatments including albuterol and Atrovent, Solu-Medrol and magnesium sulfate given IV, fluid bolus given as well as laboratory studies drawn and bedside chest x-ray ordered. X- ray shows hyperexpanded lungs but no pneumothorax or pneumomediastinum. Patient placed on chief security and safety officer and re-evaluated frequently. ABG obtained. Patient re-evaluated after initial treatment regimen he had significant improvement. No longer as dyspneic, able to converse in full sentences, no longer retracting or wheezing as significantly but still does have prolonged expiratory phase and scattered wheezing on auscultation. Vital signs have normalized and is no longer as tachycardic or hypertensive. No tachypnea. Saturating 95% on room air. Workup shows a leukocytosis of 12.0, no anemia and there is some hemoconcentration with elevated hemoglobin of 18.2. ABG shows normal pH, normal pCO2 and bicarb so this is very acute respiratory compromise. Electrolytes unremarkable. Normal renal function, normal hepatic function. Chest x-ray shows clear lungs and COPD with hyperinflation. EKG shows sinus tachycardia. Given patient's clinical improvement I feel much better about his respiratory efforts and status not do not believe he needs advanced positive-pressure ventilation or any other acute interventions besides scheduled nebs and steroids at this juncture. I discussed the case with the hospitalist who agreed to accept the patient to a telemetry monitored bed for observation. Patient was made aware of the plan and agreeable for admission at this time. Medical Records Attestation: I reviewed the patient's medical records. Lab Data Attestation: I reviewed the patient's lab results. 02/20/25 14:32 02/20/25 14:32 Labs: Lab Results 02/20/25 Range/Units 14:32 WBC 12.0 H (4.5-10.0) K/mm3 RBC 6.10 (4.6-6.20) M/mm3 Hgb 18.2 H (14.0-18.0) g/dL Hct 52.5 H (42.0-52.0) % MCV 86.1 (80-100) fl MCH 29.8 (26-34) pg MCHC 34.7 (32-36) g/dl RDW 12.9 (11.5-14.5) % Plt Count 362 (150-375) k/mm3 MPV 9.7 (7.4-10.4) fl Immature Gran % (Auto) 0.2 (0-0.5) % Neut % (Auto) 57.7 (45.5-73.1) % Lymph % (Auto) 22.3 (18.3-44.2) % [place] % (Auto) 10.3 H (2.6-8.5) % Eos % (Auto) 8.7 H (0-4.4) % Baso % (Auto) 0.8 (0.2-1.2) % Lymph # (Auto) 2.67 (0.9-3.2) K/mm3 [place] # (Auto) 1.2 H (0.1-0.6) K/mm3 Eos # (Auto) 1.0 H (0-0.3) K/mm3 Baso # (Auto) 0.1 (0.0-0.1) K/mm3 Abs Immat Gran (auto) 0.02 (0.00-0.031) K/mm3 Absolute Neuts (auto) 6.9 H (1.3-6.7) K/mm3 Absolute Nucleated RBC 0.000 (0.0-0.012) K/mm3 Nucleated RBC % 0.0 (0.0-0.2) % Sodium 143 (137-145) mmol/L Potassium 4.0 (3.4-5.0) mmol/L Chloride 105 (98-107) mmol/L Carbon Dioxide 25 (22-30) mmol/L Anion Gap 13 H (4-12) mmol/L BUN 12 (9-20) mg/dL Creatinine 1.11 (0.7-1.3) mg/dL Estim Creat Clear Calc 88 ml/min Estimated GFR > 60 (59 - ) Glucose 100 (65-110) mg/dL Calcium 9.5 (8.4-10.2) mg/dL Magnesium 2.2 (1.6-2.3) mg/dL Total Bilirubin 1.3 (0.2-1.3) mg/dL AST 23 (17-59) U/L ALT 19 (6-50) U/L Alkaline Phosphatase 88 (38-126) U/L Total Protein 9.0 H (6.3-8.2) g/dL Albumin 5.0 (3.5-5.1) g/dL ABG Data ABG results: 02/20/25 15:35 VBG pH 7.344 VBG pCO2 45.9 VBG pO2 < 27.0 L VBG HCO3 24.4 O2 Delivery Device Other device O2 Liters/Min 8.0 FiO2 53 Attestation: I personally reviewed and interpreted this ABG as follows: Interpretation: Normal ABG without acidosis or alkalosis. Imaging Data Attestation: I personally reviewed and interpreted this imaging study as follows: My impression: Impressions Chest X-Ray 02/20/25 14:25 Impression: Clear lungs. Possible COPD. Critical Care Time Critical Care Time Critical Care Time: Yes Total Critical Care Time: 40 Discharge Plan Discharge Clinical Impression: Respiratory failure, acute, Asthma exacerbation Patient Disposition: Still a Patient Condition: Stable
[2025-02-20 14:48] LABS: Alanine Aminotransferase 19 U/L (6-50); Alkaline Phosphatase 88 U/L (38-126); Anion Gap 13 mmol/L (4-12); Aspartate Amino Transferase 23 U/L (17-59); Bilirubin,Total 1.3 mg/dL (0.2-1.3); Blood Urea Nitrogen 12 mg/dL (9-20); Calcium 9.5 mg/dL (8.4-10.2); Carbon Dioxide 25 mmol/L (22-30); Chloride 105 mmol/L (98-107); Estimated CRCL calculation 88 ml/min; Estimated Glomerular Filt Rate > 60; Glucose 100 mg/dL (65-110); Magnesium 2.2 mg/dL (1.6-2.3); Sodium 143 mmol/L (137-145)
--- NOTE | 2025-02-20 14:58 | PC.NURSE ---
checked iv compatibility of lactated ringers and magnesium sulfate at this time- per [employer] they are y site compatible
[2025-02-20] MEDS: LACTATED RINGERS 1,000 ML 999 ML IV CONT (15:01)
[2025-02-20 15:39] LABS: Fractional Inspired Oxygen 53 %; HCO3 VBG 24.4 mEq/l (24.0-30.0); PCO2 VBG 45.9 mmHg (42.0-48.0); pH VBG 7.344 (7.300-7.400)
[2025-02-20 15:41] LABS: PO2 VBG < 27.0 mmHg (35.0-45.0)
[2025-02-20 15:42] LABS: Device OTHER DEVICE
--- NOTE | 2025-02-20 17:25 | P.HP_ITS ---
H&P: HPI History of Present Illness Date/Time: 02/20/25 17:25 Chief Complaint: Shortness of Breath Narrative: 20 y/o M with no significant PMH presents here with recurrent shortness of breath. The patient presents here from home on 02/20 for further evaluation of shortness of breath. The patient initially felt short of breath in December when he was admitted from 01/06-01/08. Patient was found to have a mild pneumomediastinum. [place] to be secondary to increased intrathoracic pressure secondary to wheezing/coughing due to URI/pneumonia. Patient was noted to have an elevated eosinophil count and wheezing on exam, possible COPD versus asthma. Since this admission, he has not followed up with any providers. Reporting significant shortness of breath started last night while he was trying to sleep. He reports since his last admission he has had difficulty sleeping due to the shortness of breath. Denies fever, chills, body aches, chest pain, cough, rhinorrhea, congestion. He arrived to the emergency department in significant respiratory distress and tachycardic in the 120s. He was urgent/emergently taken to an exam room and treated with fluids, magnesium, Solu-Medrol, and a DuoNeb. Patient brendan hines improved. He reports previous smoking history - 0.5 PPD x2 years, feet, and smoked marijuana. Patient cut cold turkey after his follow-up appointment on 01/30 with his PCP. 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 Initial VS at presentation: 97.9? F, HR 127, R 25, 136/108, and 95% on RA. Currently on 2L nasal cannula, no episodes of hypoxia recorded. ED workup showed: WBC 12.0, hemoglobin 18.2, no significant electrolyte derangements. CXR showed clear lungs, possible COPD. EKG showed sinus tachycardia with short NC interval, rate 106, indeterminate axis, pattern consistent with pulmonary disease. Review of Systems Review of Systems: All systems reviewed & are unremarkable except as noted in HPI and below [facility] Family History Family History (Updated 02/20/25 @ 21:00 by Jessy Cruz RN) Other Unknown family medical history Social History Social History Smoking packs per day: 0.25 Smoking cigarettes per day: 5.0 Years smoked: 2 Smoking pack-years: 0.50 Smoking status: Former smoker Tobacco type: cigars and e-cigarettes/vaping Second hand tobacco smoke exposure: No Additional smoking assessment comments: every other day Alcohol intake: never Substance use: current Substance use type: marijuana Other substance usage details: 1-3x per week Last use: 01/2025 Do You Feel Safe in your Home?: Yes Lack of Transportation: No Lack of Food: Never True Current Housing: I Have Housing Concerned About Future Housing: No Difficulty Paying Gas/Electric Bills: No Difficulty Paying for Meds: No Currently Unemployed: No Education: Grade School Difficulty w/ Childcare or Family Care: No Spiritual care concerns: No Meds Home Medications and Allergies Home Medications ?Medication ?Instructions ?Recorded ?Confirmed ?Type No Home Medications 01/06/25 02/20/25 History Allergies Allergy/AdvReac Type Severity Reaction Status Date / Time No Known Allergies Allergy Verified 01/06/25 09:39 Vital Signs Vital Signs - 24 hr 02/20/25 14:01 02/20/25 14:05 02/20/25 14:11 Temperature 97.9 F Pulse Rate 127 H Respiratory Rate 25 H Blood Pressure 136/108 H Pulse Oximetry 95 94 95 Oxygen Delivery Room Air Room Air Nasal Cannula Oxygen Flow Rate 2 02/20/25 14:17 02/20/25 14:17 02/20/25 14:32 Temperature Pulse Rate 122 H 117 H 102 H Respiratory Rate 25 H 20 Blood Pressure 129/94 H Pulse Oximetry 97 Oxygen Delivery Oxygen Flow Rate 02/20/25 15:27 02/20/25 15:33 02/20/25 16:13 Temperature Pulse Rate 111 H 128 H 101 H Respiratory Rate 19 20 19 Blood Pressure 126/67 135/92 H Pulse Oximetry 100 97 Oxygen Delivery Oxygen Flow Rate 02/20/25 17:01 Temperature Pulse Rate 101 H Respiratory Rate 20 Blood Pressure 118/77 Pulse Oximetry 94 Oxygen Delivery Oxygen Flow Rate Exam Const: General: comfortable and no acute distress Other: , male, thin, nontoxic appearance HENMT: Face/Nose/Sinus: Normal nares present Mouth: Yes moist mucous membranes Eyes: General: appearance normal, both eyes and all related structures Sclera: sclerae normal Pupils: Equal, round and reactive pupils present EOM: EOMs intact bilaterally Resp: Effort & Inspection: normal respiratory effort Auscultation: clear to auscultation bilaterally Other: No conversational dyspnea. No wheezing. Improved. Cardio: Rate: regular rate Rhythm: regular rhythm Other: S1-S2 present without murmur, rub, ectopy GI: Other: Abdomen soft, nondistended, nontender. Normoactive bowel sounds in all quadrants. Skin: General skin exam: normal color and no rashes or lesions noted Wounds: no wounds Neuro: Speech: normal speech Motor exam (neuro): 5/5 motor strength present throughout Sensory Exam: normal sensation Other: A&O x4 Extrem: General: normal to inspection Psych: Mental Status: mental status grossly normal Affect: normal affect Other: Good insight and judgment, very pleasant H&P: Results Labs Labs: Short CBC 02/20/25 Range/Units 14:32 WBC 12.0 H (4.5-10.0) K/mm3 Hgb 18.2 H (14.0-18.0) g/dL Hct 52.5 H (42.0-52.0) % Plt Count 362 (150-375) k/mm3 BMP 02/20/25 14:32 Sodium 143 Potassium 4.0 Chloride 105 Carbon Dioxide 25 BUN 12 Creatinine 1.11 Glucose 100 Calcium 9.5 Liver Function 02/20/25 Range/Units 14:32 Total Bilirubin 1.3 (0.2-1.3) mg/dL AST 23 (17-59) U/L ALT 19 (6-50) U/L Alkaline Phosphatase 88 (38-126) U/L Albumin 5.0 (3.5-5.1) g/dL Assessment and Plan Assessment and plan (1) Obstructive airway disease: Code(s): J44.9 - Chronic obstructive pulmonary disease, unspecified Status: Acute Assessment and Plan: - elevated eosinophils +wheezing raises concern for obstructive airway disease (i.e. asthma v copd). Current smoker. XR showing possible COPD, no evidence of pneumonia or pneumomediastinum. - [facility] - steroid course: Methylprednisolone 125 mg -> 60 mg IV q.6 - check alpha-1 antitrypsin level and phenotype Patient is requesting a pulmonary referral at discharge. Patient also requesting script for a rescue inhaler. Plan Diet: Regular GI Prophylaxis: Not currently indicated DVT Prophylaxis: Low risk IV fluids: 2L bolus, no maintenance fluids Lines/Tubes: Peripheral IV Code Status: Full code Quality If No VTE Prophylaxis Answer both mechanical and pharmacologic: Reason no mechanical VTE proph: low risk/not indicated Reason no pharmacologic proph: low risk/not indicated Hospitalist MIPS Advance Care Plan I have confirmed that the patient's Advanced Care Plan is present, code status is documented, or surrogate decision maker is listed in patient medical record.: Yes Medication Reconciliation I have utilized all available resources to obtain, update and review the patients current medications (includes all prescriptions, OTC, herbals, cannabis, and nutritional supplements).: Yes
[2025-02-20] MEDS: methylPREDNISolone SOD SUCC 125 MG VIAL 60 MG IV PUSH ×3 (18:28→23:55)
[2025-02-20] MEDS: IPRATROPIUM 0.5 MG/ALBUTEROL SULFATE 2.5 MG AMPUL.NEB 3 ML INHALATION (20:00)
--- NOTE | 2025-02-20 20:49 | ADMGEN ---
This patient, Apolinar Chan, was admitted to Medical Room 343-01. Patient/family oriented to hospital policies and general routines including ID bracelet, bed and alarms, visiting hours, pain management, procedures, bathroom and other care routines, personal items, smoking policy, room service/diet, and visiting hours. Information on how to activate the Rapid Response Team has been discussed. Patient/Family are encouraged to report perceived risks to care and to ask questions if they do not understand what they are told or what they should do.
[2025-02-21 04:00] VITALS: PULSE 71
[2025-02-21 04:36] VITALS: BP 111/78; PULSE 78; RESP 16; TEMP 36.2; O2SAT 97
--- NOTE | 2025-02-21 05:35 | PCRCNOTE ---
Window of time for administration has passed. See next scheduled administration.
[2025-02-21 05:37] LABS: Basophils Percent Auto 0.1 % (0.2-1.2); Hematocrit 48.4 % (42.0-52.0); Hemoglobin 16.9 g/dL (14.0-18.0); Immature Granulocyte Absolute 0.02 K/mm3 (0.00-0.031); Immature Granulocyte Percent A 0.3 % (0-0.5); Lymphocytes Absolute Auto 0.75 K/mm3 (0.9-3.2); Mean Corpuscular HGB Conc 34.9 g/dl (32-36); Mean Corpuscular Hemoglobin 30.2 pg (26-34); Mean Corpuscular Volume 86.4 fl (80-100); Mean Platelet Volume 9.5 fl (7.4-10.4); Monocytes Absolute Auto 0.1 K/mm3 (0.1-0.6); Monocytes Percent Auto 1.6 % (2.6-8.5); Neutrophils Absolute Auto 6.6 K/mm3 (1.3-6.7); Platelet Count Result 312 k/mm3 (150-375); Red Cell Distribution Width 12.8 % (11.5-14.5); White Blood Count 7.5 K/mm3 (4.5-10.0)
[2025-02-21 05:52] LABS: Anion Gap 11 mmol/L (4-12); Blood Urea Nitrogen 14 mg/dL (9-20); Calcium 9.3 mg/dL (8.4-10.2); Carbon Dioxide 23 mmol/L (22-30); Chloride 104 mmol/L (98-107); Estimated CRCL calculation 96 ml/min; Estimated Glomerular Filt Rate > 60; Glucose 146 mg/dL (65-110); Potassium 4.8 mmol/L (3.4-5.0); Sodium 138 mmol/L (137-145)
[2025-02-21] MEDS: methylPREDNISolone SOD SUCC 125 MG VIAL 60 MG IV PUSH ×2 (06:32→13:03)
[2025-02-21 07:35] VITALS: PULSE 96; RESP 16; O2SAT 97
[2025-02-21] MEDS: IPRATROPIUM 0.5 MG/ALBUTEROL SULFATE 2.5 MG AMPUL.NEB 3 ML INHALATION ×2 (07:35→13:20)
[2025-02-21 07:47] VITALS: PULSE 98; RESP 16
--- NOTE | 2025-02-21 08:39 | PM.IMPN ---
Progress Note: A&P Assessment and Plan (1) Obstructive airway disease: Code(s): J44.9 - Chronic obstructive pulmonary disease, unspecified Status: Acute Assessment and Plan: - elevated eosinophils +wheezing raises concern for obstructive airway disease (i.e. asthma v copd). Current smoker. XR showing possible COPD, no evidence of pneumonia or pneumomediastinum. - DuoNebs davin - steroid course: Methylprednisolone 125 mg -> 60 mg IV q.6 - check alpha-1 antitrypsin level and phenotype Patient is requesting a pulmonary referral at discharge. Patient also requesting script for a rescue inhaler. Plan Diet: Regular GI Prophylaxis: Not currently indicated DVT Prophylaxis: Low risk IV fluids: 2L bolus, no maintenance fluids Lines/Tubes: Peripheral IV Code Status: Full code Time Spent With Patient Time with patient: 25 - 35 minutes Subjective Date/time seen: 02/21/25 08:39 Interval history: The patient admitted on 02/20 for evaluation of shortness of breath. The patient initially felt short of breath in December when he was admitted from 01/06-01/08. Patient was found to have a mild pneumomediastinum. [place] to be secondary to increased intrathoracic pressure secondary to wheezing/coughing due to URI/pneumonia. Patient was noted to have an elevated eosinophil count and wheezing on exam, possible COPD versus asthma. Since this admission, he has not followed up with any providers. Reporting significant shortness of breath started last night while he was trying to sleep. He reports since his last admission he has had difficulty sleeping due to the shortness of breath. Denies fever, chills, body aches, chest pain, cough, rhinorrhea, congestion. He arrived to the emergency department in significant respiratory distress and tachycardic in the 120s. He was urgent/emergently taken to an exam room and treated with fluids, magnesium, Solu-Medrol, and a DuoNeb. Patient markedly improved. He reports previous smoking history - 0.5 PPD x2 years, feet, and smoked marijuana. Patient cut cold turkey after his follow-up appointment on 01/30 with his PCP. 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 Initial VS at presentation: 97.9? F, HR 127, R 25, 136/108, and 95% on RA. Currently on 2L nasal cannula, no episodes of hypoxia recorded. ED workup showed: WBC 12.0, hemoglobin 18.2, no significant electrolyte derangements. CXR showed clear lungs, possible COPD. EKG showed sinus tachycardia with short MD interval, rate 106, indeterminate axis, pattern consistent with pulmonary disease. Pt is seen and examined. Currently on ra. Review of Systems Review of Systems: All systems reviewed & are unremarkable except as noted in HPI and below Exam Const: General: comfortable and no acute distress Other: , male, thin, nontoxic appearance HENMT: Face/Nose/Sinus: Normal nares present Mouth: Yes moist mucous membranes Eyes: General: appearance normal, both eyes and all related structures Sclera: sclerae normal Pupils: Equal, round and reactive pupils present EOM: EOMs intact bilaterally Resp: Effort & Inspection: normal respiratory effort Auscultation: clear to auscultation bilaterally Other: No conversational dyspnea. No wheezing. Improved. Cardio: Rate: regular rate Rhythm: regular rhythm Other: S1-S2 present without murmur, rub, ectopy GI: Other: Abdomen soft, nondistended, nontender. Normoactive bowel sounds in all quadrants. Skin: General skin exam: normal color and no rashes or lesions noted Wounds: no wounds Neuro: Cranial nerves: Yes Equal, round and reactive pupils present Speech: normal speech Motor exam (neuro): 5/5 motor strength present throughout Sensory Exam: normal sensation Other: A&O x4 Extrem: General: normal to inspection Psych: Mental Status: mental status grossly normal Affect: normal affect Other: Good insight and judgment, very pleasant Objective Data Vital Signs Vital Signs: Vital Signs - 24 hr 02/20/25 14:01 02/20/25 14:05 02/20/25 14:11 Temperature 97.9 F Pulse Rate 127 H Respiratory Rate 25 H Blood Pressure 136/108 H Pulse Oximetry 95 94 95 Oxygen Delivery Room Air Room Air Nasal Cannula Oxygen Flow Rate 2 02/20/25 14:17 02/20/25 14:17 02/20/25 14:32 Temperature Pulse Rate 122 H 117 H 102 H Respiratory Rate 25 H 20 Blood Pressure 129/94 H Pulse Oximetry 97 Oxygen Delivery Oxygen Flow Rate 02/20/25 15:27 02/20/25 15:33 02/20/25 16:00 Temperature Pulse Rate 111 H 128 H Respiratory Rate 19 20 Blood Pressure 126/67 Pulse Oximetry 100 96 Oxygen Delivery Room Air Oxygen Flow Rate 05/08/25 16:13 02/20/25 17:01 02/20/25 17:52 Temperature Pulse Rate 101 H 101 H 85 Respiratory Rate 19 20 21 H Blood Pressure 135/92 H 118/77 110/73 Pulse Oximetry 97 94 96 Oxygen Delivery Oxygen Flow Rate 02/20/25 17:57 02/20/25 18:29 02/20/25 19:04 Temperature Pulse Rate 91 97 Respiratory Rate 18 23 H Blood Pressure 115/65 130/82 Pulse Oximetry 96 97 93 Oxygen Delivery Room Air Oxygen Flow Rate 02/20/25 19:48 02/20/25 20:00 02/20/25 20:00 Temperature 97.1 F L Pulse Rate 85 109 H 107 H Respiratory Rate 20 20 20 Blood Pressure 123/71 Pulse Oximetry 95 95 Oxygen Delivery Room Air Oxygen Flow Rate 02/20/25 20:10 02/21/25 04:00 02/21/25 04:36 Temperature 97.1 F L Pulse Rate 107 H 71 78 Respiratory Rate 20 16 Blood Pressure 111/78 Pulse Oximetry 97 Oxygen Delivery Oxygen Flow Rate 02/21/25 07:35 02/21/25 07:35 02/21/25 07:47 Temperature Pulse Rate 96 98 Respiratory Rate 16 16 Blood Pressure Pulse Oximetry 97 Oxygen Delivery Room Air Oxygen Flow Rate Intake/Output Intake/Output: Intake & Output 02/18/25 02/19/25 02/20/25 02/21/25 23:59 23:59 23:59 23:59 Intake Total 1050 500 Balance 1050 500 Meds/Results Medications: Active Medications Generic Name Dose Route Start Last Admin Trade Name Freq PRN Reason Stop Dose Admin Acetaminophen 650 mg 02/20/25 17:53 Acetaminophen 325 Mg Tablet PO Q6H PRN Mild Pain (1-3) or Fever Albuterol/Ipratropium 3 ml 02/20/25 20:00 02/21/25 07:35 Ipratropium 0.5 Mg/Albuterol Sulfate 2.5 Mg Ampul.Neb 3 Ml INHALATION 3 ml Q6HRT DAVIN Administration Methylprednisolone Sodium Succinate 60 mg 02/21/25 00:00 02/21/25 06:32 Methylprednisolone Sod Succ 125 Mg Vial IV PUSH 60 mg Q6HR DAVIN Administration Nicotine 1 patch 02/20/25 17:53 Nicotine (*Pbkc) 7 Mg Patch TRANSDERM DAILY PRN Nicotine Cravings Radiology Results: ITS Impressions Chest X-Ray 02/20/25 14:25 Impression: Clear lungs. Possible COPD. Labs Labs: Laboratory Results - last 24 hr 02/20/25 02/20/25 02/21/25 14:32 15:35 05:20 WBC 12.0 H 7.5 RBC 6.10 5.60 Hgb 18.2 H 16.9 Hct 52.5 H 48.4 MCV 86.1 86.4 MCH 29.8 30.2 MCHC 34.7 34.9 RDW 12.9 12.8 Plt Count 362 312 MPV 9.7 9.5 Immature Gran % (Auto) 0.2 0.3 Neut % (Auto) 57.7 88.0 H Lymph % (Auto) 22.3 10.0 L [place] % (Auto) 10.3 H 1.6 L Eos % (Auto) 8.7 H 0.0 Baso % (Auto) 0.8 0.1 L Lymph # (Auto) 2.67 0.75 L [place] # (Auto) 1.2 H 0.1 Eos # (Auto) 1.0 H 0.0 Baso # (Auto) 0.1 0.0 Abs Immat Gran (auto) 0.02 0.02 Absolute Neuts (auto) 6.9 H 6.6 Absolute Nucleated RBC 0.000 0.000 Nucleated RBC % 0.0 0.0 VBG pH 7.344 VBG pCO2 45.9 VBG pO2 < 27.0 L VBG HCO3 24.4 O2 Delivery Device Other device O2 Liters/Min 8.0 FiO2 53 Sodium 143 138 Potassium 4.0 4.8 Chloride 105 104 Carbon Dioxide 25 23 Anion Gap 13 H 11 BUN 12 14 Creatinine 1.11 0.82 Estim Creat Clear Calc 88 96 Estimated GFR > 60 > 60 Glucose 100 146 H Calcium 9.5 9.3 Magnesium 2.2 Total Bilirubin 1.3 AST 23 ALT 19 Alkaline Phosphatase 88 Total Protein 9.0 H Albumin 5.0
[2025-02-21 13:20] VITALS: PULSE 92; RESP 16
[2025-02-21 13:29] VITALS: PULSE 91; RESP 16
--- NOTE | 2025-02-21 13:43 | PM.DS ---
DS: Admitting Diagnosis Discharge Date 02/21 Admitting Diagnosis sob DS: Discharge Diagnosis Discharge Diagnosis (1) Obstructive airway disease: Code(s): J44.9 - Chronic obstructive pulmonary disease, unspecified Status: Acute Plan Diet: Regular GI Prophylaxis: Not currently indicated DVT Prophylaxis: Low risk IV fluids: 2L bolus, no maintenance fluids Lines/Tubes: Peripheral IV Code Status: Full code DS: Summary Hospital Course Hospital Course: 20 y/o M with no significant PMH presents here with recurrent shortness of breath. The patient presents here from home on 02/20 for further evaluation of shortness of breath. He was in the hospital in December 16-01/08 for SOB. Patient was found to have a mild pneumomediastinum. [place]rosse to be secondary to increased intrathoracic pressure secondary to wheezing/coughing due to URI/pneumonia. Patient was noted to have an elevated eosinophil count and wheezing on exam, possible COPD versus asthma. Since this admission, he has not followed up with any providers. Reporting significant shortness of breath started last night while he was trying to sleep. He reports since his last admission he has had difficulty sleeping due to the shortness of breath. Denies fever, chills, body aches, chest pain, cough, rhinorrhea, congestion. He arrived to the emergency department in significant respiratory distress and tachycardic in the 120s. He was urgent/emergently taken to an exam room and treated with fluids, magnesium, Solu-Medrol, and a DuoNeb. Patient markedly improved. He reports previous smoking history - 0.5 PPD x2 years, feet, and smoked marijuana. Patient cut cold turkey after his follow-up appointment on 01/30 with his PCP. 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 Initial VS at presentation: 97.9? F, HR 127, R 25, 136/108, and 95% on RA. Currently on 2L nasal cannula, no episodes of hypoxia recorded. ED workup showed: WBC 12.0, hemoglobin 18.2, no significant electrolyte derangements. CXR showed clear lungs, possible COPD. EKG showed sinus tachycardia with short SC interval, rate 106, indeterminate axis, pattern consistent with pulmonary disease. #COPD elevated eosinophils +wheezing raises concern for obstructive airway disease (i.e. asthma v copd). Current smoker. XR showing possible COPD, no evidence of pneumonia or pneumomediastinum. - [facility] - steroid course: Methylprednisolone 125 mg -> 60 mg IV q.6 - check alpha-1 antitrypsin level and phenotype Steroid taper was prescribed for pt. PUlm referral added. Albuterol PRN sent to pharmacy. Pt is instructed not to smoke tobacco or marijuana and avoid second handsmoking. Status at Discharge Functional status at discharge: independent ambulation Overall status at discharge: patient is progressing back to baseline Time Spent with Patient Time attestation: Total time spent providing and/or coordinating discharge services: Time spent: Less than 30 minutes Exam Narrative: feels a lot better, no sob, on RA Const: General: comfortable and no acute distress Other: , male, thin, nontoxic appearance HENMT: Face/Nose/Sinus: Normal nares present Mouth: Yes moist mucous membranes Eyes: General: appearance normal, both eyes and all related structures Sclera: sclerae normal Pupils: Equal, round and reactive pupils present EOM: EOMs intact bilaterally Resp: Effort & Inspection: normal respiratory effort Auscultation: clear to auscultation bilaterally Other: No conversational dyspnea. No wheezing. Improved. Cardio: Rate: regular rate Rhythm: regular rhythm Other: S1-S2 present without murmur, rub, ectopy GI: Other: Abdomen soft, nondistended, nontender. Normoactive bowel sounds in all quadrants. Skin: General skin exam: normal color and no rashes or lesions noted Wounds: no wounds Neuro: Cranial nerves: Yes Equal, round and reactive pupils present Speech: normal speech Motor exam (neuro): 5/5 motor strength present throughout Sensory Exam: normal sensation Other: A&O x4 Extrem: General: normal to inspection Psych: Mental Status: mental status grossly normal Affect: normal affect Other: Good insight and judgment, very pleasant DS: Data Data Completed and Pending Labs on day of discharge: Labs from last 24 hours 02/21/25 02/20/25 02/20/25 05:20 15:35 14:32 WBC 7.5 12.0 H RBC 5.60 6.10 Hgb 16.9 18.2 H Hct 48.4 52.5 H MCV 86.4 86.1 MCH 30.2 29.8 MCHC 34.9 34.7 RDW 12.8 12.9 Plt Count 312 362 MPV 9.5 9.7 Immature Gran % (Auto) 0.3 0.2 Neut % (Auto) 88.0 H 57.7 Lymph % (Auto) 10.[address] [place] % (Auto) 1.6 L 10.3 H Eos % (Auto) 0.0 8.7 H Baso % (Auto) 0.1 L 0.8 Lymph # (Auto) 0.[address] [place] # (Auto) 0.1 1.2 H Eos # (Auto) 0.0 1.0 H Baso # (Auto) 0.0 0.1 Abs Immat Gran (auto) 0.02 0.02 Absolute Neuts (auto) 6.6 6.9 H Absolute Nucleated RBC 0.000 0.000 Nucleated RBC % 0.0 0.0 VBG pH 7.344 VBG pCO2 45.9 VBG pO2 < 27.0 L VBG HCO3 24.4 O2 Delivery Device Other device O2 Liters/Min 8.0 FiO2 53 Sodium 138 143 Potassium 4.8 4.0 Chloride 104 105 Carbon Dioxide 23 25 Anion Gap 11 13 H BUN 14 12 Creatinine 0.82 1.11 Estim Creat Clear Calc 96 88 Estimated GFR > 60 > 60 Glucose 146 H 100 Calcium 9.3 9.5 Magnesium 2.2 Total Bilirubin 1.3 AST 23 ALT 19 Alkaline Phosphatase 88 Total Protein 9.0 H Albumin 5.0 [id number] Pending Alpha-1-AT Phenotype Pending Discharge Plan Discharge Attending physician on discharge: Adrián Mcelroy Discharging Clinician: Jordana Menard Patient Disposition: Home Activity: may shower Diet: regular Discharge Instructions: please follow instruction to complete steroid taper. Use albuterol inhaler on as needed basis and schedule an bobby with pulm as soon as possible for further work up/follow up. Please avoid smoking tobacco and marijuana and avoid second hand smoking. Patient Instructions: Antibiotic Form Patient Language: [place] Stand Alone Forms: General Discharge Information Follow-up/Referrals: UNKNOWN,DOCTOR [Primary Care Provider] - 1 Week Scotty Stiles MD [Physician] - 2 Weeks Discharge Medications: New ProAir RespiClick 90 mcg/actuation aerosol powdr breath activated 1 inh inhalation Q4-6H PRN (Reason: sob, wheezing) Qty: 1 0RF prednisone 10 mg tablets,dose pack See Taper PO DAILY 12 Days Qty: 42 0RF Taper: Prednisone Taper from 60 mg;12 days 60 mg DAILY for 2 Days and 0 Hour 50 mg DAILY for 2 Days and 0 Hour 40 mg DAILY for 2 Days and 0 Hour 30 mg DAILY for 2 Days and 0 Hour 20 mg DAILY for 2 Days and 0 Hour 10 mg DAILY for 2 Days and 0 Hour Rx Instructions: start tomorrow, 02/22 No Action No Home Medications Date of admission: 02/20/25 17:33 Primary Care Provider: UNKNOWN,DOCTOR Admitting Provider: Pee Ghotra Attending physician on admission: Pee Ghotra Condition: Stable Hospitalist MIPS Heart Failure (Exclusion) Patient has history of Heart Transplant or Left Ventricular Assistive Device?: No IF YES, STOP HERE Heart Failure (Qualifier) Patient has current or prior documentation of LVEF less than or equal to 40%, or mod/servere depressed LVSF?: No IF NO, STOP HERE
[2025-02-22 03:19] LABS: Alpha-1-Antitrypsin, QN 161 mg/dL (83-199)
== END 2025-02-21 14:26 | disposition home or self-care (01) ==
LOC: ANHED 14:27 → ANH3MED 23:09
PROVIDERS: Student in an Organized Health Care Education/Training Program; Admitting Provider Family Medicine; Emergency Provider Student in an Organized Health Care Education/Training Program; Visit Provider General Practice
DX: J44.9 Chronic obstructive pulmonary disease, unspecified (principal); F17.290 Nicotine dependence, other tobacco product, uncomplicated; F12.90 Cannabis use, unspecified, uncomplicated
CPT/HCPCS: 36415; 71045; 80048; 80053; 82103; 82104; 82803; 83735; 85025; 93005; 94640; 96365; 96366; 96375; 99285; G0378; J2919; J3475; J7120